=== PATIENT | female | born 1995 | race Caucasian/White ===

== ENCOUNTER → 2016-03-15 | Outpatient (CLI) | payer BC ==
[~2016-03-15] MED LIST: BIOT1CAP8 PO; CETI10TA84 PO; DPPRI400 IM; HYDR1SOL10 PO; MELA1TAB5 PO
[2016-03-15 12:15] LABS: PREG INTERNAL NEGATIVE QC NEG CLEAR BACKGROUND; PREG INTERNAL POSITIVE QC POS CONTROL LINE
== END | disposition home or self-care (01) ==
LOC: C.LAB1850 11:01
PROVIDERS: ATTEND Obstetrics & Gynecology
DX: Z30.40 Encounter for surveillance of contraceptives, unspecified (principal)

== ENCOUNTER → 2016-07-05 | Day surgery (SDC) | payer BC ==
[2016-06-26 15:10] VITALS: Ht 160 cm; Wt 79.5 kg
--- NOTE | 2016-07-04 21:29 | HISTORY & PHYSICAL EXAMINATION ---
DATE OF ADMISSION: 07/05/2016 DIAGNOSIS: Chronic tonsillitis. HISTORY OF PRESENT ILLNESS: A 20-year-old with history of recurrent chronic tonsillitis. PAST MEDICAL HISTORY: MEDICAL PROBLEMS: None. PREVIOUS SURGERIES: None. ALLERGIES: None known. FAMILY HISTORY: Negative. SOCIAL HISTORY: Negative. REVIEW OF SYSTEMS: Otherwise, negative. PHYSICAL EXAMINATION: GENERAL: This is a 20-year-old lady who is 5 feet 3 inches and 175 pounds. HEAD: Normocephalic. EYES: Normal. EARS: Tympanic membranes intact. NOSE: Nasal passages swollen turbinates. THROAT: Oropharynx shows 3+ tonsillar hypertrophy. NECK: Supple. HEART: RRR. LUNGS: Clear. ABDOMEN: Soft. GENITOURINARY: Deferred. IMPRESSION: Chronic tonsillitis. PLAN: For adenotonsillectomy.
[~2016-07-05] VITALS: Ht 160 cm; Wt 79.5 kg
[~2016-07-05] MED LIST changes: +ACETAMINOPHEN/HYDROCODONE ELIX 15 ML/CUP UDP ONE; +ATROPINE SULFATE 0.1 MG/ML 5ML SYR IV PRN; +BUPIVACAINE/EPINEPHRINE 0.5% MPF 1:200,000 30 ML VIAL ONE; +CHECK SCOPOLAMINE PATCH PLACEMENT SCH; +DEXAMETHASONE SOD INJ 4 MG/ML VIAL ONE; +EpHEDrine SULFATE INJ 50 MG/ML AMP IV PRN; +FENTANYL CITRATE INJ 50 MCG/1 ML 2 ML VIAL IV PRN; +FENTANYL CITRATE INJ 50 MCG/1 ML 2 ML VIAL ONE; +GLYCOPYRROLATE INJ 0.2 MG/ML VIAL ONE; +LACTATED RINGER'S 1000ML 1,000 ML IV SCH; +LIDOCAINE HCL 2% 2 ML VIAL (20MG/ML) ONE; +MIDAZOLAM HCL 1 MG/ML 2ML VIAL ONE; +NEOSTIGMINE METHYLSULFATE 5 MG/5 ML SYR ONE; +NURSING VERBAL MED ORDER ONE; +ONDANSETRON INJ 2 MG/ML 2 ML VIAL IV PRN; +ONDANSETRON INJ 2 MG/ML 2 ML VIAL ONE; +PROPOFOL IV EMULSION 10 MG/ML 20 ML VIAL IV ONE; +SCOPOLAMINE 1.5 MG TDSY TD ONE
--- NOTE | 2016-07-05 07:20 | History & Physical Bridge Note ---
H&P Re-Evaluation Bridge Note: I have examined the patient, reviewed the History & Physical and in the interval since the performance of the History & Physical I have noted the following changes of clinical significance: No changes noted
--- NOTE | 2016-07-05 08:37 | Discharge Instructions-SurgCtr ---
Discharge Instructions Date of Service July 05, 2016. Visit Reason for Visit: Chronic Tonsillitis Discharge Discharge Diagnosis / Problem: same Discharge Goals Goal(s): Improve disease control Medications Stopped Medications Name(s): no blood thinners Activity Recommendations Activity Limitations: per Instructions/Follow-up section Anesthesia . Post Anesthesia Instructions: If you have had General Anesthesia or IV Sedation: * Do not drive today. * Resume driving when surgeon permits. * Do not make important decisions or sign legal documents today. * Call surgeon for: 1. Temperature elevations greater than 101 degrees F. 2. Uncontrollable pain. 3. Excessive bleeding. 4. Persistent nausea and vomiting. 5. Medication intolerance (nausea, vomiting or rash). * For nausea and vomiting use only clear liquids such as: tea, soda, bouillon until nausea subsides, then gradually increase diet as tolerated. * If you have any concerns or questions, call your surgeon's office. If physician is unavailable and it is an emergency, call 911 or go to the nearest emergency room. . Instructions / Follow-Up Instructions / Follow-Up ACTIVITY RECOMMENDATIONS: * During the first few days, activities should be limited. * Stay indoors for several days. * After 48 hours, activity can gradually be increased to normal activity. RETURN TO SCHOOL/WORK: * Return to school or work in one week. * No physical education for two weeks. OVER THE COUNTER MEDICATIONS: * You may use Tylenol * Avoid aspirin or aspirin containing products, e.g. as they may increase bleeding. SPECIAL CARE INSTRUCTIONS: * Avoid coughing or clearing the throat. * Do not use a straw. * A sore throat is expected frequently accompanied by pain radiating to the ears. This is normal. * Expect bad breath until "scabs" are healed. * Notify the doctor if bleeding occurs, vomiting, temperature greater than 101 degrees Fahrenheit. Call or cell phone: . * If bleeding occurs, it is usually in the first 24 hours or after the 5th day. If unable to reach the doctor, go to the nearest Emergency Department. Special Diet: * Fluids are very important and should be encouraged to maintain adequate hydration. * To maintain nutrition, eat soft foods and after 48 hours the consistency of foods can be increased. Examples are jello, soup, pasta, ice cream and mashed foods. FOLLOW UP VISIT: Follow-up visit with Dr. Rios in 2 weeks. Please call to schedule if not already scheduled. Diet Recommendations Home Diet: special diet Diet Texture: Mechanical Soft (ground) Procedures Procedures Performed: Adenotonsillectomy Pending Studies Studies pending at discharge: no Medical Emergencies . Who to Call and When: Medical Emergencies: If at any time you feel your situation is an emergency, please call 911 immediately. . Non-Emergent Contact Non-Emergency issues call your: Primary Care Provider . . "Provider Documentation" section prepared by Beverly Rios. . [place] Drug Monitoring Program Search Results: no issues identified
[2016-07-05 09:32] VITALS: TEMP 36.5
[2016-07-05 10:15] VITALS: BP 102/68; PULSE 76; O2SAT 98
--- NOTE | 2016-07-05 10:17 | Anesthesia Progress Nt - [facility] ---
Anesthesia Post Op Note Date & Time July 05, 2016 at 10:17 Vital Signs Pain Intensity: 2.0 Vital Signs Past 12 Hours Date Time Temp Pulse Resp B/P Pulse Ox O2 Delivery O2 Flow Rate FiO2 07/05/16 10:15 76 16 102/68 98 Room Air 07/05/16 09:32 36.5 84 16 112/62 98 Room Air 07/05/16 09:21 113/74 07/05/16 09:20 36.9 07/05/16 09:18 93 13 99 07/05/16 09:18 91 13 07/05/16 09:16 114/75 07/05/16 09:13 84 14 122/67 97 07/05/16 09:13 86 14 07/05/16 09:08 87 16 07/05/16 09:08 88 16 99 07/05/16 09:06 117/62 07/05/16 09:03 99 19 07/05/16 09:03 98 19 89 07/05/16 09:01 121/71 07/05/16 08:58 94 16 97 07/05/16 08:58 92 16 07/05/16 08:56 118/70 07/05/16 08:53 98 18 100 07/05/16 08:53 95 18 07/05/16 08:51 125/61 07/05/16 08:48 118 15 07/05/16 08:48 120 15 100 07/05/16 08:47 130/64 07/05/16 08:44 37 117 16 141/92 100 Humidified Oxygen 6 Mask 07/05/16 08:43 121 07/05/16 08:43 121 141/92 99 07/05/16 07:00 37.3 94 18 108/74 94 Room Air Notes Mental Status: alert / awake / arousable, participated in evaluation Pt Amnestic to Procedure: Yes Nausea / Vomiting: adequately controlled Pain: adequately controlled Airway Patency, RR, SpO2: stable & adequate BP & HR: stable & adequate Hydration State: stable & adequate Anesthetic Complications: no major complications apparent
--- NOTE | 2016-07-05 12:08 | OPERATIVE REPORT ---
DATE OF OPERATION: 07/05/2016 PREOPERATIVE DIAGNOSIS: Chronic tonsillitis. POSTOPERATIVE DIAGNOSIS: Same. PROCEDURE: Adenotonsillectomy. SURGEON: Dr. Rios. ANESTHESIA: General endotracheal. COMPLICATIONS: None. BLOOD LOSS: 5 mL. HISTORY OF PRESENT ILLNESS: A 20-year-old with recurrent chronic tonsillitis. OPERATION AND FINDINGS: PROCEDURE: The patient was brought to the operating room and placed in supine position. General endotracheal anesthesia was induced, draped in the usual manner. Mouth gag was placed. Peritonsillar area was injected with .5% Sensorcaine, 1:200:000 strength Epinephrine. Soft palate retracted using a red Longoria catheter. Tonsillectomy performed using the coblation device coblating out the tonsil from anterior to the posterior pillar and from the superior pole to the inferior pole. Both tonsils were removed in a similar manner. Hemostasis was controlled with the coblation device. Adenoidectomy was performed using the coblation technique and hemostasis controlled using the coblation technique. The patient tolerated the procedure well and was taken to the recovery room in satisfactory condition. I attest to the content of the Intraoperative Record and any orders documented therein. Any exceptio ns are noted below.
== END | disposition home or self-care (01) ==
LOC: X.SURG 06:43
PROVIDERS: ATTEND Otolaryngology
DX: J35.03 Chronic tonsillitis and adenoiditis (principal)

== ENCOUNTER → 2017-05-07 | Outpatient (CLI) | payer BC ==
[~2017-05-07] MED LIST changes: -ACETAMINOPHEN/HYDROCODONE ELIX 15 ML/CUP UDP ONE; -ATROPINE SULFATE 0.1 MG/ML 5ML SYR IV PRN; -BUPIVACAINE/EPINEPHRINE 0.5% MPF 1:200,000 30 ML VIAL ONE; -CHECK SCOPOLAMINE PATCH PLACEMENT SCH; -DEXAMETHASONE SOD INJ 4 MG/ML VIAL ONE; -EpHEDrine SULFATE INJ 50 MG/ML AMP IV PRN; -FENTANYL CITRATE INJ 50 MCG/1 ML 2 ML VIAL IV PRN; -FENTANYL CITRATE INJ 50 MCG/1 ML 2 ML VIAL ONE; -GLYCOPYRROLATE INJ 0.2 MG/ML VIAL ONE; -HYDR1SOL10 PO; -LACTATED RINGER'S 1000ML 1,000 ML IV SCH; -LIDOCAINE HCL 2% 2 ML VIAL (20MG/ML) ONE; -MIDAZOLAM HCL 1 MG/ML 2ML VIAL ONE; -NEOSTIGMINE METHYLSULFATE 5 MG/5 ML SYR ONE; -NURSING VERBAL MED ORDER ONE; -ONDANSETRON INJ 2 MG/ML 2 ML VIAL IV PRN; -ONDANSETRON INJ 2 MG/ML 2 ML VIAL ONE; -PROPOFOL IV EMULSION 10 MG/ML 20 ML VIAL IV ONE; -SCOPOLAMINE 1.5 MG TDSY TD ONE
== END | disposition home or self-care (01) ==
LOC: C.LABSPEC 15:34
PROVIDERS: ATTEND Physician Assistant
DX: Z01.419 Encounter for gynecological examination (general) (routine) without abnormal findings (principal)

== ENCOUNTER → 2017-05-17 | Outpatient (CLI) | payer BC ==
--- NOTE | 2017-05-17 08:59 | DIAGNOSTIC IMAGING REPORT ---
ABDOMINAL ULTRASOUND, RIGHT UPPER QUADRANT HISTORY: R10.11 Abdominal pain, RUQ (right upper quadrant). COMPARISON: None. FINDINGS: Pancreas: The visualized pancreas demonstrates a normal echotexture. Liver: The liver is echogenic consistent with fatty change. Gallbladder: No gallbladder wall thickening. No gallstones. CBD: 4 mm. Right kidney: No hydronephrosis. IMPRESSION: Mild hepatic steatosis.. Normal gallbladder. Electronically signed by: Magdy Tobar M.D. 05/17/2017 8:58 AM Dictated Date/Time: 05/17/2017 8:57 AM
== END | disposition home or self-care (01) ==
LOC: C.ULTRBC 08:23
PROVIDERS: ATTEND Physician Assistant Medical
DX: R10.11 Right upper quadrant pain (principal)